=== PATIENT | female | born 1995 | race Caucasian/White ===

== ENCOUNTER 2017-12-23 07:51 | Emergency (ER) | payer OTHER ==
[~2017-12-23] VITALS: Ht 160 cm; Wt 92.1 kg
[2017-12-23] MEDS ORDERED: ZOFRAN4 MG PO (10:09)
== END 2017-12-23 10:21 | disposition home or self-care (01) ==
LOC: ED 07:51
DX: R11.2 Nausea with vomiting, unspecified (principal); Z88.2 Allergy status to sulfonamides; Z88.8 Allergy status to other drugs, medicaments and biological substances
CPT/HCPCS: 80053; 83605; 83690; 84703; 85025; 96361; 96374; 96375; 99283; J2060; J2405; J7030

== ENCOUNTER 2017-12-23 23:00 | Emergency (ER) | payer OTHER ==
[~2017-12-23] VITALS: Ht 160 cm; Wt 92.1 kg
[~2017-12-23 23:00] MED LIST: ZOFRAN4 MG PO
== END 2017-12-24 01:34 | disposition home or self-care (01) ==
LOC: ED 23:00
DX: K52.9 Noninfective gastroenteritis and colitis, unspecified (principal); Z88.2 Allergy status to sulfonamides; Z88.8 Allergy status to other drugs, medicaments and biological substances
CPT/HCPCS: 74177; 81001; 96361; 96374; 99284; J2550; J7030; Q9967

== ENCOUNTER 2018-10-28 22:07 | Emergency (ER) | payer OTHER ==
[~2018-10-28] VITALS: Ht 160 cm; Wt 92.1 kg
[2018-10-28] MEDS ORDERED: PROZAC20 MG PO (22:21)
[2018-10-28] MEDS ORDERED: HYDROXYZINE HCL25 MG PO (22:22)
[2018-10-28] MEDS ORDERED: DICYCLOMINE HCL20 MG PO (23:35)
== END 2018-10-28 23:57 | disposition home or self-care (01) ==
LOC: ED 22:07
DX: R10.30 Lower abdominal pain, unspecified (principal); F41.9 Anxiety disorder, unspecified; F32.9 Major depressive disorder, single episode, unspecified; Z88.2 Allergy status to sulfonamides; Z88.1 Allergy status to other antibiotic agents; Z88.8 Allergy status to other drugs, medicaments and biological substances
CPT/HCPCS: 80053; 81001; 83690; 84703; 85025; 99284

== ENCOUNTER 2019-03-18 21:19 | Emergency (ER) | payer OTHER ==
[~2019-03-18] VITALS: Ht 152.4 cm; Wt 92.1 kg
[~2019-03-18 21:19] MED LIST changes: +CIPRO500 MG PO; +DICYCLOMINE HCL20 MG PO; +HYDROXYZINE HCL25 MG PO; +PROZAC20 MG PO
[2019-03-18] MEDS ORDERED: LEXAPRO20 MG PO (21:37)
== END 2019-03-19 00:24 | disposition home or self-care (01) ==
LOC: ED 21:19
DX: Z00.8 Encounter for other general examination (principal); F41.9 Anxiety disorder, unspecified; F32.9 Major depressive disorder, single episode, unspecified; Z88.1 Allergy status to other antibiotic agents; Z88.2 Allergy status to sulfonamides; Z88.3 Allergy status to other anti-infective agents; Z79.899 Other long term (current) drug therapy
CPT/HCPCS: 80053; 80176; 81001; 84443; 84703; 85025; 99283; G0480

== ENCOUNTER 2020-01-17 20:28 | Emergency (ER) | payer OTHER ==
[~2020-01-17] VITALS: Ht 160 cm; Wt 99.8 kg
[~2020-01-17 20:28] MED LIST changes: +LEXAPRO20 MG PO
[2020-01-17] MEDS ORDERED: BUSPIRONE HCL7.5 MG PO (20:44)
[2020-01-17] MEDS ORDERED: HYDROXYZINE HCL25 MG PO (20:44)
[2020-01-17] MEDS ORDERED: BRINTELLIX10 MG PO (20:45)
[2020-01-17] MEDS ORDERED: ZOFRAN4 MG PO (21:35)
== END 2020-01-17 22:37 | disposition home or self-care (01) ==
LOC: ED 20:28
DX: K52.9 Noninfective gastroenteritis and colitis, unspecified (principal); F41.9 Anxiety disorder, unspecified; F32.9 Major depressive disorder, single episode, unspecified; F17.200 Nicotine dependence, unspecified, uncomplicated; Z88.2 Allergy status to sulfonamides; Z88.8 Allergy status to other drugs, medicaments and biological substances; Z79.899 Other long term (current) drug therapy
CPT/HCPCS: 80053; 81001; 83690; 84703; 85025; 96374; 99284-25; J2405; J7030

== ENCOUNTER 2020-05-28 12:34 | Emergency (ER) | payer OTHER ==
[~2020-05-28] VITALS: Ht 167.6 cm; Wt 89.8 kg
[~2020-05-28 12:34] MED LIST changes: +BRINTELLIX10 MG PO; +BUSPIRONE HCL7.5 MG PO
[2020-05-28] MEDS ORDERED: AMITRIPTYLINE H25 MG PO (12:45)
[2020-05-28] MEDS ORDERED: DOXYCYCLINE MO100 M1 PO (12:45)
[2020-05-28] MEDS ORDERED: MICROGESTIN1 EACH PO (12:46)
== END 2020-05-28 16:10 | disposition home or self-care (01) ==
LOC: ED 12:34
DX: K64.8 Other hemorrhoids (principal); N73.9 Female pelvic inflammatory disease, unspecified; F41.9 Anxiety disorder, unspecified; F32.9 Major depressive disorder, single episode, unspecified; Z87.891 Personal history of nicotine dependence; Z88.8 Allergy status to other drugs, medicaments and biological substances; Z88.2 Allergy status to sulfonamides; Z88.1 Allergy status to other antibiotic agents; Z79.899 Other long term (current) drug therapy
CPT/HCPCS: 74177; 80053; 81001; 84703; 85025; 99284-25; Q9967

== ENCOUNTER 2021-08-23 00:09 | Emergency (ER) | payer OTHER ==
[~2021-08-23] VITALS: Ht 167.6 cm; Wt 89.8 kg
[~2021-08-23 00:09] MED LIST changes: +AMITRIPTYLINE H25 MG PO; +DOXYCYCLINE MO100 M1 PO; +MICROGESTIN1 EACH PO
--- OUTSIDE RECORDS SUMMARY | 2021-08-23 00:18 | XMS ---
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 Rocío has no Care Guidelines for this patient. Mary VISIT COUNT (12 MO.) 1 [facility] TOTAL 2 NOTE: Visits indicate total known visits. ED/UCC VISIT TRACKING (12 MO.) 08/23/2021 00:10 [facility] [place] TYPE: Emergency COMPLAINT: - ABD PAIN, VAGINAL BLEEDING 03/17/2021 04:47 [facility] ID TYPE: Emergency DIAGNOSES: - Shortness of Breath; Dizzy - Shortness of Breath - COVID-19 - Pneumonia due to coronavirus disease 2019 - Emesis INPATIENT VISIT TRACKING (12 MO.) No inpatient visits to display in this time frame [email or web address]
[2021-08-23] MEDS ORDERED: DEXTROAMP-AMPHE15 MG PO (00:28)
[2021-08-23] MEDS ORDERED: HYDROCODON-ACE1 EA10 PO (01:35)
== END 2021-08-23 01:45 | disposition home or self-care (01) ==
LOC: ED 00:09
DX: N89.8 Other specified noninflammatory disorders of vagina (principal); Z87.891 Personal history of nicotine dependence; Z88.2 Allergy status to sulfonamides; Z88.8 Allergy status to other drugs, medicaments and biological substances; Z79.899 Other long term (current) drug therapy
CPT/HCPCS: 36415; 81001; 84703; 85025; 99284

== ENCOUNTER 2022-03-23 01:40 | Emergency (ER) | payer OTHER ==
[~2022-03-23] VITALS: Ht 167.6 cm; Wt 89.8 kg
[~2022-03-23 01:40] MED LIST changes: +DEXTROAMP-AMPHE15 MG PO; +HYDROCODON-ACE1 EA10 PO
--- OUTSIDE RECORDS SUMMARY | 2022-03-23 01:42 | XMS ---
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 Care History Medical/Surgical 08/26/2021 [facility] - Patient is currently established with [facility]. If patient is seen in the ED during business hours. Please contact CHWs at [facility]. Care Recommendation: If this patient has had 5 or more Emergency Department visits in the last 12 months.\T\nbsp; Patient will require education on the scope and purpose of the ED as an acute care provider not a Primary Care Provider and should not be utilized for chronic conditions.\T\nbsp; These are guidelines and the provider should exercise clinical judgment when providing care. E.D. VISIT COUNT (12 MO.) 2 [facility] TOTAL 2 NOTE: Visits indicate total known visits. ED/UCC VISIT TRACKING (12 MO.) 03/23/2022 01:[address] [facility] [place] TYPE: Emergency COMPLAINT: - ALTERED LOC 08/23/2021 00:[address] 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
== END 2022-03-23 04:22 | disposition home or self-care (01) ==
LOC: ED 01:40
DX: F10.129 Alcohol abuse with intoxication, unspecified (principal); Z87.891 Personal history of nicotine dependence; Z88.2 Allergy status to sulfonamides; Z88.8 Allergy status to other drugs, medicaments and biological substances; Z88.1 Allergy status to other antibiotic agents; Z79.899 Other long term (current) drug therapy
CPT/HCPCS: 36415; 80053; 84703; 85025; 96361; 96374; 96375; 99284-25; A9270; G0480; J1790; J2405; J3480; J7030

== ENCOUNTER 2022-11-13 06:50 | Day surgery (SDC) | payer OTHER ==
[2022-11-10 10:30] VITALS: BP 109/79
[~2022-11-13] VITALS: Ht 167.6 cm; Wt 75.5 kg
--- NOTE | ~2022-11-13 | OR ---
[facility] [address] [place], [place] [address] Draft DATE OF OPERATION: 11/13/2022 SURGEON: Mary Jo Toussaint DO PROCEDURE: Hysteroscopy, D and C. ASSOCIATE DIRECTOR OF DEVELOPMENT: None. PREOPERATIVE DIAGNOSIS: Abnormal uterine bleeding, endometrial polyp. POSTOPERATIVE DIAGNOSIS: Abnormal uterine bleeding, endometrial polyp. ANESTHESIA: Monitored anesthesia care. BLOOD LOSS: 10 mL. FINDINGS: Thickened endometrium. No obvious discrete polyp. INDICATIONS: The patient is a 27-year-old female who presented for office evaluation of abnormal irregular menstrual bleeding. Office endometrial biopsy was significant for endometrial polyp. Risks, benefits, alternatives to definitive management in the form of hysteroscopy, D and C, and polypectomy were discussed. The patient strongly preferred to proceed in the OR. Consents were signed. PROCEDURE IN DETAIL: The patient was taken back to the operating room where she was placed under monitored anesthesia care and positioned in dorsal lithotomy. She was prepped and draped in normal sterile fashion. Weighted speculum was placed in the vagina. Anterior lip of the cervix was grasped with an Allis clamp. Cervix was easily sequentially dilated with Hegar dilators to accommodate 6 mm hysteroscope. Hysteroscope was brought into the uterine cavity without any difficulty and bilateral tubal ostia were visualized. MyoSure Lite device was introduced. Superficial curettage of the uterine cavity was PATIENT NAME: SHARONDA LOMELI OPERATIVE REPORT DATE OF : [birth year] REPORT #: [id number] PHYSICIAN: MARY JO TOUSSAINT DO PCP: ORQUIDEA GARZA NP REPORT IS CONFIDENTIAL AND NOT TO BE RELEASED WITHOUT AUTHORIZATION [facility] [address] [place] [address] Draft performed under direct visualization using sterile saline as a distending medium and the Aquilex fluid management system. Fluid deficit at the end of the case noted to be 320 mL. All instruments were removed. Hemostasis was confirmed. Sponge and instrument counts were correct. The patient was taken to recovery room in stable and satisfactory condition. DO KAYE Cook/KAMRYNL /[id number] Copies: ~ PATIENT NAME: SHARONDA LOMELI OPERATIVE REPORT DATE OF : [birth year] REPORT #: [id number] PHYSICIAN: MARY JO TOUSSAINT DO PCP: ORQUIDEA GARZA NP REPORT IS CONFIDENTIAL AND NOT TO BE RELEASED WITHOUT AUTHORIZATION
[~2022-11-13 06:50] MED LIST changes: +ADDERALL 10 MG10 MG PO; +IBUPROFEN800 MG PO; +MIDODRINE HCL5 MG PO; +ONDANSETRON HCL4 MG PO
[2022-11-13 07:04] VITALS: BP 116/68
--- NOTE | 2022-11-13 10:24 | NUR ---
11/13/22 Kelly Huggins 1013 PT TO PACU SLEEPING O2 VIA MASK AT 6L. FOGGING NOTED IN MASK.
[2022-11-13 11:55] VITALS: BP 116/68
--- NOTE | 2022-11-13 13:58 | NUR ---
LE 1150 PATIENT BACK TO ROOM 4. PATIENT IS ALERT AND ORIENTED. BREATHING EQUAL AND UNLABORED. OXYGEN SATURATIONS ABOVE 90% ON ROOM AIR. PATIENT STATES PAIN IS A 5/10 AND TOLERABLE AT THIS TIME. DR. GARCÍA AWARE. PATIENT DENIES BEING NAUSEATED. PATIENT HAS SMALL AMOUNT OF RED DRAINAGE ON REMBERTO PAD. IVF INFUSING. CALL LIGHT WITHIN REACH NO FUTHER NEEDS. LE 1240 PATIENT UP TO USE RESTROOM. PATIENT TOLERATED AMBULATION WELL. PATIENT WOULD LIKE TO GO HOME. LE 1250 PATIENT HAS MET DISCHARGE INSTRUCTIONS. PATIENT DISCHARGE INSTRUCTIONS GIVEN AND UNDERSTOOD. NO QUESTIONS AT THIS TIME. PATIENT DRESSED SELF AND TOLERATED IT WELL. PATIENT WHEELED OUT OF FACILITY WITH [facility]. NO FUTHER NEEDS.
--- NOTE | 2022-11-18 06:16 | PATH ---
[facility] [address] [place], [place] [address] Signed SPECIMEN(S): A ENDOMETRIAL CURETTINGS SPECIMEN SOURCE: A. ENDOMETRIAL CURETTINGS CLINICAL HISTORY: AUB; endometrial polyp; POTS. FINAL PATHOLOGIC DIAGNOSIS: Endometrial curettings: - Proliferative endometrium with focal polypoid features, negative for hyperplasia or atypia. JVR:uvaldo:C2NR MICROSCOPIC EXAMINATION: Histologic sections of all submitted blocks are examined by light microscopy. These findings, together with the gross examination, support the pathologic diagnosis. GROSS DESCRIPTION: The specimen, labeled and designated "Shwetha Lomeli," and designated on the requisition "[facility]," is received in formalin and consists of a portion of alarcon-pink to red-brown soft tissue (2.5 x 1.5 x 0.3 cm in aggregate). The specimen is submitted entirely in cassette (A1). AC (under the direct supervision of a pathologist) The Gross Description was prepared using a voice recognition system. The report was reviewed for accuracy; however, sound-alike word errors, addition and/or deletions may occur. If there is any question about this report, please contact Client Services. PERFORMING LABORATORY: The technical component was performed by [facility], [address] [place] [id number] (CLIA# [id number]). Professional interpretation was performed by [facility] - [facility], [address] [place] [id number] (CLIA#: [id number]). Diagnostician: Latrell Ortiz MD Pathologist Electronically Signed 11/17/2022 PATIENT NAME: SHARONDA LOMELI PATHOLOGY DATE OF : [birth year] REPORT #: [id number] PHYSICIAN: [facility] PCP: ORQUIDEA GARZA NP REPORT IS CONFIDENTIAL AND NOT TO BE RELEASED WITHOUT AUTHORIZATION [address] [address] Signed Copies: ~ PATIENT NAME: SHARONDA LOMELI PATHOLOGY DATE OF : [birth year] REPORT #: [id number] PHYSICIAN: [facility] PCP: ORQUIDEA GARZA NP REPORT IS CONFIDENTIAL AND NOT TO BE RELEASED WITHOUT AUTHORIZATION
== END 2022-11-13 12:55 | disposition home or self-care (01) ==
LOC: DS 06:50 → OPS 06:50 → DS 09:30 → OPS 09:30
PROVIDERS: ATTEND Obstetrics & Gynecology
DX: N93.9 Abnormal uterine and vaginal bleeding, unspecified (principal); N84.0 Polyp of corpus uteri; G90.A Postural orthostatic tachycardia syndrome [POTS]; F17.210 Nicotine dependence, cigarettes, uncomplicated; Z88.1 Allergy status to other antibiotic agents; Z88.8 Allergy status to other drugs, medicaments and biological substances; Z79.899 Other long term (current) drug therapy
CPT/HCPCS: 00952; J0131; J1100; J1885; J2250; J2405; J2704; J3010; J7121

== ENCOUNTER 2023-01-16 12:05 | Emergency (ER) | payer OTHER ==
[~2023-01-16] VITALS: Ht 167.6 cm; Wt 77.2 kg
--- OUTSIDE RECORDS SUMMARY | ~2023-01-16 | XMS | Continuity of Care Document ---
Demographics + + + | Address | [address] | | | [place] [address] | + + + | Preferred Language | Unknown | + + + | Marital Status | Never | + + + | Amish Affiliation | Unknown | + + + | Race | White | + + + | Ethnic Group | Not or | + + + Author + + + | Author | [facility] | + + + | Organization | [facility] | + + + | Address | [address] [facility] | | | [place] [address] | + + + | Phone | | + + + Care Team Providers + + + + | Care Bicycle I Assembler Name | Role | Phone | + + + + Unavailable | Unavailable | + + + + Unavailable | Unavailable | + + + + Unavailable | Unavailable | + + + + Allergies and Intolerances + + + + + + | date | description | facility | reaction | severity | + + + + + + | (no date) | | [facility] | (no reaction) | (no severity) | | | Sulfamethoxazol [facility] | | | [facility] e [facility] Hospital | | | + + + + + + | (no date) | Trimethoprim | [facility] | (no reaction) | (no severity) | | | [facility] | | | | [facility] Hospital | | | + + + + + + | (no date) | Metronidazole | [facility] | (no reaction) | (no severity) | | | [facility] | | | | | | Hospital | | | + + + + + + | (no date) | Metronidazole | [facility] | (no reaction) | (no severity) | | | [facility] | | | | | | Hospital | | | + + + + + + | (no date) | IBUPROFEN | [facility] | (no reaction) | (no severity) | + + + + + + | (no date) | Mild | [facility] | (no reaction) | (no severity) | | | [facility] | | | | | | Hospital | | | + + + + + + | (no date) | Omeprazole | [facility] | (no reaction) | (no severity) | | | | [facility] | | | | | | Hospital | | | + + + + + + | (no date) | Trimethoprim | [facility] | (no reaction) | (no severity) | | | | [facility] | | | | | | Hospital | | | + + + + + + | (no date) | | [facility] | (no reaction) | (no severity) | | | SULFAMETHOXAZOL | | | | | | E-TRIMETHOPRIM | | | | + + + + + + | (no date) | OMEPRAZOLE | [facility] | (no reaction) | (no severity) | + + + + + + | (no date) | | [facility] | (no reaction) | (no severity) | | | Sulfamethoxazol | Cr | | | | | e | Hospital | | | + + + + + + | (no date) | Vomiting | [facility] | (no reaction) | (no severity) | | | | [facility] | | | | | | Hospital | | | + + + + + + | (no date) | Metronidazole | [facility] | (no reaction) | (no severity) | | | | [facility] | | | | | | Hospital | | | + + + + + + | (no date) | Omeprazole | [facility] | (no reaction) | (no severity) | | | | [facility] | | | | | | Hospital | | | + + + + + + | (no date) | Trimethoprim | [facility] | (no reaction) | (no severity) | | | | [facility] | | | | | | Hospital | | | + + + + + + | (no date) | | [facility] | (no reaction) | (no severity) | | | Sulfamethoxazol | Cr | | | | | e | Hospital | | | + + + + + + | (no date) | Omeprazole | [facility] | (no reaction) | (no severity) | | | | [facility] | | | | | | Hospital | | | + + + + + + Encounters No information. Functional Status No information. Immunizations + + + + | date | description | facility | + + + + | 2019-01-10 00:00 | Tdap | [facility] | + + + + Medications + + + + | date | description | facility | + + + + | 2022-11-13 00:00 | FLUOXETINE HCL | [facility] | + + + + | 2017-12-23 00:00 | ONDANSETRON HCL | [facility] | + + + + | 2020-01-17 00:00 | ONDANSETRON HCL | [facility] | + + + + | 2022-11-13 00:00 | NORETHINDRONE A-E | [facility] | | | ESTRADIOL | | + + + + | 2022-11-13 00:00 | DOXYCYCLINE MONOHYDRATE | [facility] | + + + + | 2022-11-13 00:00 | VORTIOXETINE HYDROBROMIDE | [facility] | + + + + | 2022-11-13 00:00 | IBUPROFEN | [facility] | + + + + | 2022-11-13 00:00 | ONDANSETRON HCL | [facility] | + + + + | 2019-01-10 00:00 | CIPROFLOXACIN HCL | [facility] | + + + + | 2022-11-13 00:00 | ESCITALOPRAM OXALATE | [facility] | + + + + | 2022-11-13 00:00 | AMITRIPTYLINE HCL | [facility] | + + + + | 2022-11-13 00:00 | AMPHET ASP/AMPHET/D-AMPHET | [facility] | | | | | + + + + | 2022-11-13 00:00 | BUSPIRONE HCL | [facility] | + + + + | 2018-10-28 00:00 | DICYCLOMINE HCL | [facility] | + + + + | 2022-11-13 00:00 | MIDODRINE HCL | [facility] | + + + + | 2022-11-13 00:00 | hydrOXYzine HCL | [facility] | + + + + Problems + + + + | date | description | facility | + + + + | 2017-12-23 00:00 | Vomiting | [facility] | + + + + | 2017-12-24 00:00 | Acute gastroenteritis | [facility] | + + + + | 2018-10-28 00:00 | Nonspecific abdominal pain | [facility] | | | | | + + + + | 2019-01-10 00:00 | Puncture wound | [facility] | + + + + | 2019-03-18 00:00 | Encounter for medical | [facility] | | | screening examination | | + + + + | 2020-05-28 00:00 | Internal hemorrhoids | [facility] | + + + + | 2020-05-28 00:00 | Female pelvic inflammatory | [facility] | | | disease | | + + + + | 2020-05-28 00:00 | Abdominal pain | [facility] | + + + + | 2021-03-17 06:28:01 | Pneumonia due to | [facility] | | | coronavirus disease 2019 | | + + + + | 2021-03-17 06:28:01 | COVID-19 | [facility] | + + + + | 2022-03-23 00:00 | Alcoholic intoxication | [facility] | + + + + Procedures + + + + | date | description | facility | + + + + | 2022-11-13 00:00 | Hysteroscopy | [facility] | + + + + | 2022-11-13 00:00 | Hysteroscopy | [facility] | + + + + Results/Labs +--------+--------+ +---------+--------+---------+ | test | date | facility | value | unit | notes | +--------+--------+ +---------+--------+---------+ + + | Result panel 1 | + + + + + +-------+ + + | | 2022-11-10 | [facility] | 5.1 | (missing) | (missing) | | (unavailable | 10:51:07 | [facility] | | | | | ) | | Hospital | | | | + + + +-------+ + + + + | Result panel 2 | + + + + + + + + + | | 2022-11-10 | [facility] | NEGATIVE | (missing) | (missing) | | (unavailable | 10:51:07 | Cr | | | | | ) | | Hospital | | | | + + + + + + + + + | Result panel 3 | + + + + + +--------+ + + | | 2022-11-10 | [facility] | 4.71 | (missing) | (missing) | | (unavailable | 10:51:07 | Cr | | | | | ) | | Hospital | | | | + + + +--------+ + + + + | Result panel 4 | + + + + + +--------+ + + | | 2022-11-10 | [facility] | 14.9 | (missing) | (missing) | | (unavailable | 10:51:07 | Cr | | | | | ) | | Hospital | | | | + + + +--------+ + + + + | Result panel 5 | + + + + + +--------+ + + | | 2022-11-10 | [facility] | 43.9 | (missing) | (missing) | | (unavailable | 10:51:07 | Cr | | | | | ) | | Hospital | | | | + + + +--------+ + + + + | Result panel 6 | + + + + + +--------+ + + | | 2022-11-10 | [facility] | 93.2 | (missing) | (missing) | | (unavailable | 10:51:07 | Cr | | | | | ) | | Hospital | | | | + + + +--------+ + + + + | Result panel 7 | + + + + + +--------+ + + | | 2022-11-10 | [facility] | 31.6 | (missing) | (missing) | | (unavailable | 10:51:07 | Cr | | | | | ) | | Hospital | | | | + + + +--------+ + + + + | Result panel 8 | + + + + + +--------+ + + | | 2022-11-10 | [facility] | 33.8 | (missing) | (missing) | | (unavailable | 10:51:07 | Cr | | | | | ) | | Hospital | | | | + + + +--------+ + + + + | Result panel 9 | + + + + + +--------+ + + | | 2022-11-10 | [facility] | 12.4 | (missing) | (missing) | | (unavailable | 10:51:07 | Cr | | | | | ) | | Hospital | | | | + + + +--------+ + + + + | Result panel 10 | + + + + + +-------+ + + | | 2022-11-10 | [facility] | 259 | (missing) | (missing) | | (unavailable | 10:51:07 | Cr | | | | | ) | | Hospital | | | | + + + +-------+ + + Social History No information. Vital Signs + + + +---------+ | date | measurement | value | units | + + + +---------+ | 2022-11-10 00:00 | BMI | 26.8 | kg/m2 | + + + +---------+ | 2022-11-10 00:00 | height_metric | 167.64 | cm | + + + +---------+ | 2022-11-10 00:00 | height_standard | 66 | in | + + + +---------+ | 2022-11-10 00:00 | weight_metric | 75.45 | kg | + + + +---------+ | 2022-11-10 00:00 | weight_standard | 166.34 | lb | + + + +---------+ | 2022-11-13 00:00 | BP_diastolic | 68 | mmHg | + + + +---------+ | 2022-11-13 00:00 | BP_systolic | 116 | mmHg | + + + +---------+ | 2022-11-13 00:00 | heart_rate | 78 | /min | + + + +---------+ | 2022-11-13 00:00 | o2_saturation | 100 | % | + + + +---------+ | 2022-11-13 00:00 | respiration_rate | 16 | /min | + + + +---------+ | 2022-11-13 00:00 | temperature_metric | 36.44 | C | | | | | | + + + +---------+ | 2022-11-13 00:00 | | 97.6 | F | | | temperature_standar | | | | | d | | | + + + +---------+"
--- OUTSIDE RECORDS SUMMARY | ~2023-01-16 | XMS | Continuity of Care Document ---
Demographics + + + | Address | [address] | | | [place] [address] | + + + | Preferred Language | Unknown | + + + | Marital Status | Never | + + + | Episcopalian Affiliation | Unknown | + + + | Race | White | + + + | Ethnic Group | Not or | + + + Author + + + | Author | [facility] | + + + | Organization | [facility] | + + + | Address | [address] | | | [place] [address] | + + + | Phone | | + + + Care Team Providers + + + + | Care Email Manager Name | Role | Phone | + [...] | 2019-01-10 00:00 | Tdap | [facility] | + + + + Medications + + + + | date | description | facility | + + + + | 2022-11-13 00:00 | FLUOXETINE HCL | [facility] | + + + + | 2017-12-23 00:00 | ONDANSETRON HCL | [facility] | + + + + | 2020-01-17 00:00 | ONDANSETRON HCL | [facility] | + + + + | 2022-11-13 00:00 | NORETHINDRONE A-E | [facility] | | | ESTRADIOL | | + + + + | 2022-11-13 00:00 | DOXYCYCLINE MONOHYDRATE | [facility] | + + + + | 2022-11-13 00:00 | VORTIOXETINE HYDROBROMIDE | [facility] | + + + + | 2022-11-13 00:00 | IBUPROFEN | [facility] | + + + + | 2022-11-13 00:00 | ONDANSETRON HCL | [facility] | + + + + | 2019-01-10 00:00 | CIPROFLOXACIN HCL | [facility] | + + + + | 2022-11-13 00:00 | ESCITALOPRAM OXALATE | [facility] | + + + + | 2022-11-13 00:00 | AMITRIPTYLINE HCL | [facility] | + + + + | 2022-11-13 00:00 | AMPHET ASP/AMPHET/D-AMPHET | [facility] | | | | | + + + + | 2022-11-13 00:00 | BUSPIRONE HCL | [facility] | + + + + | 2018-10-28 00:00 | DICYCLOMINE HCL | [facility] | + + + + | 2022-11-13 00:00 | MIDODRINE HCL | [facility] | + + + + | 2022-11-13 00:00 | hydrOXYzine HCL | [facility] | + + + + Problems + + + + | date | description | facility | + + + + | 2017-12-23 00:00 | Vomiting | [facility] | + + + + | 2017-12-24 00:00 | Acute gastroenteritis | [facility] | + + + + | 2018-10-28 00:00 | Nonspecific abdominal pain | [facility] | | | | | + + + + | 2019-01-10 00:00 | Puncture wound | [facility] | + + + + | 2019-03-18 00:00 | Encounter for medical | [facility] | | | screening examination | | + + + + | 2020-05-28 00:00 | Internal hemorrhoids | [facility] | + + + + | 2020-05-28 00:00 | Female pelvic inflammatory | [facility] | | | disease | | + + + + | 2020-05-28 00:00 | Abdominal pain | [facility] | + + + + | 2021-03-17 06:28:01 | Pneumonia due to | [facility] | | | coronavirus disease 2019 | | + + + + | 2021-03-17 06:28:01 | COVID-19 | [facility] | + + + + | 2022-03-23 00:00 | Alcoholic intoxication | [facility] | + + + + Procedures + + + + | date | description | facility | + + + + | 2022-11-13 00:00 | Hysteroscopy | [facility] | + + + + | 2022-11-13 00:00 | Hysteroscopy | [facility] | + + + + Results/Labs +--------+--------+ [...]
--- OUTSIDE RECORDS SUMMARY | 2023-01-16 12:08 | XMS ---
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 Care History Medical/Surgical 08/26/2021 [facility] - Patient is currently established with [facility]. If patient is seen in the ED during business hours. Please contact CHWs at [facility]. Care Recommendation: If this patient has had [...] care. E.D. VISIT COUNT (12 MO.) 2 [facility] TOTAL 2 NOTE: Visits indicate total known visits. 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
[2023-01-16] MEDS ORDERED: FLUVOXAMINE MAL50 MG PO (12:28)
[2023-01-16 13:11] VITALS: BP 108/72
--- NOTE | 2023-01-18 06:48 | EKG ---
[facility] [address] [facility] [place] [address] Signed Normal sinus rhythm Incomplete right bundle branch block Borderline ECG No previous ECGs available Confirmed by RAFAEL VANCE MD ([id number]) on 01/18/2023 6:48:43 AM Electronically Signed By: RAFAEL VANCE 01/18/23 0648 PATIENT NAME: SHARONDA LOMELI Electrocardiogram DATE OF : [birth year] PHYSICIAN: RAFAEL VANCE REPORT #: [id number] REPORT IS CONFIDENTIAL AND NOT TO BE RELEASED WITHOUT AUTHORIZATION
== END 2023-01-16 13:18 | disposition home or self-care (01) ==
LOC: ED 12:05
DX: R07.89 Other chest pain (principal); Z87.891 Personal history of nicotine dependence; Z88.8 Allergy status to other drugs, medicaments and biological substances; Z79.899 Other long term (current) drug therapy
CPT/HCPCS: 71046; 93005; 93010; A9270

== ENCOUNTER 2023-12-16 06:55 | Day surgery (SDC) | payer OTHER ==
[2023-12-14 09:25] VITALS: BP 106/70
[~2023-12-16] VITALS: Ht 167.6 cm; Wt 85.9 kg
[~2023-12-16 06:55] MED LIST changes: +FLUVOXAMINE MAL50 MG PO; +LACTATED RINGER'S 1,000 ML IV SCH
[2023-12-16] MEDS ORDERED: LIDOCAINE HCL 1% 5 ML SDV INJ ONE (07:00)
[2023-12-16] MEDS ORDERED: IBLOOD GLUCOSE TEST STRIP 1 EA TEST VI PRN ×2 (07:00→08:15)
[2023-12-16] MEDS ORDERED: MIDAZOLAM HCL 2 MG/2 ML VIAL IV ONE (07:15)
[2023-12-16 07:18] VITALS: BP 114/73
[2023-12-16] MEDS ORDERED: DEXAMETHASONE SOD PHOS 4 MG/ML VIAL ONE (07:38)
[2023-12-16] MEDS ORDERED: KETOROLAC TROMETHAMINE 30 MG/ML VIAL ONE (07:38)
[2023-12-16] MEDS ORDERED: LIDOCAINE HCL 1% 30 ML SDV ONE (07:38)
[2023-12-16] MEDS ORDERED: ROCURONIUM BROMIDE 50 MG/5 ML SYR ONE (07:38)
[2023-12-16] MEDS ORDERED: propofoL 200 MG/20 ML VIAL ONE (07:38)
[2023-12-16] MEDS ORDERED: dexmedeTOMIDine HCl 200 MCG/2 ML VIAL ONE (07:38)
[2023-12-16] MEDS ORDERED: ondansetron HCL 4 MG/2 ML VIAL ONE (07:38)
[2023-12-16] MEDS ORDERED: KETAMINE in NS 50 MG/5 ML SYR ONE (07:43)
[2023-12-16] MEDS ORDERED: NALOXONE HCL 0.4 MG SYR IV PRN ×2 (08:15→10:30)
[2023-12-16] MEDS ORDERED: fentaNYL citrate 50 MCG/ML SDV IV PRN (08:15)
[2023-12-16] MEDS ORDERED: ondansetron HCL 4 MG/2 ML VIAL IV PRN ×2 (08:15→10:30)
[2023-12-16] MEDS ORDERED: MIDAZOLAM HCL 2 MG/2 ML VIAL IV PRN (08:15)
[2023-12-16] MEDS ORDERED: Methylene Blue 100 MG/10 ML SDV ONE (08:17)
[2023-12-16] MEDS ORDERED: SODIUM CHLORIDE 0.9% 500 ML IV ONE (08:20)
[2023-12-16] MEDS ORDERED: LACTATED RINGER'S 1,000 ML IV ONE (09:15)
[2023-12-16] MEDS ORDERED: SUGAMMADEX SODIUM 200 MG/2 ML ML ONE (09:35)
--- NOTE | 2023-12-16 10:11 | NUR ---
12/16/23 1011 Dalia Hernandez PATIENT ARRIVES IN PACU UNRESPONSIVE TO MY VOICE AND LIGHT TOUCH. ORAL AIRWAY IN PLACE. 1009: PATIENT BEGINS TREMBLING. SHE BEGINS TAKING DEEP BREATHS. ORAL AIRWAY IS REMOVED BY [facility].
[2023-12-16] MEDS ORDERED: METOCLOPRAMIDE HCL 10 MG/2 ML SDV IV PRN (10:30)
[2023-12-16] MEDS ORDERED: MORPHINE SULFATE 10 MG/ML VIAL IV PRN (10:30)
[2023-12-16] MEDS ORDERED: FAMOTIDINE 20 MG TAB PO PRN (10:30)
[2023-12-16] MEDS ORDERED: OXYCODONE/APAP 5/325 TAB PO PRN (10:30)
[2023-12-16 11:02] VITALS: BP 120/72
--- NOTE | 2023-12-16 11:05 | NUR ---
ICED WATER AND PUDDING GIVEN. CALL LIGHT WITHIN REACH.
[2023-12-16 12:15] VITALS: BP 109/62
--- NOTE | 2023-12-16 12:53 | NUR ---
1215: PATIENT AWAKENED FOR VS CHECK. IV SITE WNL. RATES PAIN 6/10. PATIENT STATES SHE NEEDS TO VOID. 1220: PATIENT GIVEN 1 TAB OF PERCOCET FOR PAIN ALONG WITH SOME BITES OF APPLESAUCE. PATIENT ASSISTED OOB AND TO BATHROOM. 1235: PATIENT BACK IN BED. TOLERATED MORE APPLESAUCE AND CHOCOLATE PUDDING. PATIENT REQUESTED LIGHTS TURNED OFF. PATIENT RESTING. CALL LIGHT WITHIN REACH.
[2023-12-16] MEDS ORDERED: SIMETHICONE 125 MG TABLET CHEWABLE PO SCH (13:00)
[2023-12-16] MEDS ORDERED: HYDROCODON-ACE1 EA10 PO (13:18)
[2023-12-16 13:20] VITALS: BP 106/62
--- NOTE | 2023-12-16 14:33 | NUR ---
1325: PATIENT AWAKENED FOR VS CHECK. RATES PAIN /10. DISCHARGE INSTRUCTIONS GIVEN TO PATIENT. PATIENT ASKING TO TALK TO DR. MERRILL. 1345: DR. MERRILL IN ROOM TO SPEAK WITH PATIENT. 1350: PATIENT GETTING DRESSED. 1400: PATIENT PUT HOME CARE MANAGER LIGHT. C/O NAUSEA. COOL AIR BLOWING ON PATIENT. PATIENT LAYING DOWN IN BED.
--- NOTE | 2023-12-16 14:35 | NUR ---
1420: PATIENT CONTINUES TO HAVE NAUSEA. MEDICATED WITH IV ZOFRAN. RIDE HERE. PATIENT SAYS OK TO DISCHARGE HOME. 1425: IV DC'D WNL. TIP INTACT. DRESSING APPLIED. PATIENT DISCHARGED TO HOME WITH FRIEND DARBY VIA WHEELCHAIR.
[2023-12-16] MEDS ORDERED: MACROBID 100 M100 MG PO (21:51)
[2023-12-16] MEDS ORDERED: PERCOCET 5-3251 EACH PO (21:54)
--- NOTE | 2023-12-18 16:31 | PATH ---
[facility] [address] [place], [place] [address] Signed SPECIMEN(S): A ENDOMETRIAL CURETTINGS SPECIMEN SOURCE: A. ENDOMETRIAL CURETTINGS CLINICAL HISTORY: AUB; dysmenorrhea; dyspareunia; history of PID FINAL PATHOLOGIC DIAGNOSIS: Endometrium, curettage: - Proliferative phase endometrium; no hyperplasia or neoplasia identified BRP MICROSCOPIC EXAMINATION: Histologic sections of all submitted blocks are examined by light microscopy. These findings, together with the gross examination, support the pathologic diagnosis. GROSS DESCRIPTION: The specimen, labeled and designated "Lomeli, endometrial curettings," is received in formalin and consists of multiple fragments of soft alarcon-red tissue and blood measuring 3.5 x 2.5 x 0.3 cm in aggregate. Entirely submitted in (A1-A2). JS (under the direct supervision of a pathologist) The Gross Description was prepared using a voice recognition system. The report was reviewed for accuracy; however, sound-alike word errors, addition and/or deletions may occur. If there is any question about this report, please contact Client Services. ADDITIONAL NOTES: Immunohistochemical and/or in situ hybridization studies if performed in this case included appropriate positive controls that reacted as expected. This test was developed and its performance characteristics determined by [facility]. It has not been cleared or approved by the U.S. Food and Drug Administration. The FDA has determined that such clearance or approval is not necessary. This test is used for clinical purposes. It should not be regarded as investigational or for research. [facility] is certified under the Clinical Laboratory Improvement Amendments of 1988 (CLIA) as qualified to perform high complexity clinical laboratory testing. PATIENT NAME: SHARONDA LOMELI PATHOLOGY DATE OF : [birth year] REPORT #: [id number] PHYSICIAN: SREEDHAR PATHOLOGY PCP: ORQUIDEA GARZA NP REPORT IS CONFIDENTIAL AND NOT TO BE RELEASED WITHOUT AUTHORIZATION [facility] [address] [place] [address] Signed PERFORMING LABORATORY: Technical component was performed by [facility], [address] [place] [address] (CLIA# [id number]). Professional interpretation was performed by [facility] - [address] [id number] Diagnostician: Delroy Gann MD Pathologist Electronically Signed 12/18/2023 Copies: ~ PATIENT NAME: SHARONDA LOMELI PATHOLOGY DATE OF : [birth year] REPORT #: [id number] PHYSICIAN: SREEDHAR RAE PCP: ORQUIDEA GARZA NP REPORT IS CONFIDENTIAL AND NOT TO BE RELEASED WITHOUT AUTHORIZATION
--- NOTE | 2023-12-21 21:59 | OR ---
[facility] [address] [place], [place] [address] Signed DATE OF OPERATION: 12/16/2023 SURGEON: Kelsey Agarwal DO PREOPERATIVE DIAGNOSES: 1. Dysmenorrhea. 2. History of pelvic inflammatory disease. 3. Abnormal uterine bleeding. POSTOPERATIVE DIAGNOSES: 1. Dysmenorrhea. 2. Proximal bilateral fallopian tube occlusion. 3. Abnormal uterine bleeding. PROCEDURES PERFORMED: 1. Diagnostic laparoscopy. 2. Chromopertubation that demonstrated blocked tubes proximally bilaterally. 3. Hysteroscopy, D and C. CONTRACT NEGOTIATION MANAGER: Annie Hodges M.D. ANESTHESIA: General. ESTIMATED BLOOD LOSS: 10 mL. SPECIMENS: Endometrial curettings. FINDINGS: Normal upper quadrant bilaterally with no evidence of violin string over the liver capsule. In the right and left lower quadrants bilaterally, the patient has moderate amount of scarring of the colon to the abdominal sidewall. In the pelvis, normal uterus and ovaries bilaterally. The tubes are somewhat clubbed especially proximally near the cornu, but no obvious hydrosalpinx. No evidence of endometriosis or other pelvic pathology. Chromopertubation was performed and no fluid was noted within the fallopian tubes; however, fluid was seen in the parametrium, this confirms suspected proximal tubal occlusion based on the appearance of the fallopian tube. On hysteroscopy, normal Electronically Signed By: KELSEY AGARWAL DO (JD) 12/21/23 2159 PATIENT NAME: SHARONDA LOMELI OPERATIVE REPORT DATE OF : [birth year] REPORT #: [id number] PHYSICIAN: KELSEY AGARWAL (MAURO) PCP: ORQUIDEA GARZA NP REPORT IS CONFIDENTIAL AND NOT TO BE RELEASED WITHOUT AUTHORIZATION [facility] [address] [place], [place] [address] Signed uterine cavity with some thickened endometrium that was removed with MyoSure Reach device. Normal appearance of tubal ostia. INDICATIONS: Mrs. Lomeli is a very pleasant 28-year-old, G0 female, who presents for hysteroscopy, D and C, diagnostic laparoscopy and chromopertubation. Risks, benefits, and alternatives were discussed in detail with the patient. The patient understands and wished to proceed with the procedure. DESCRIPTION OF PROCEDURE: The patient was taken to the OR. Time-out was performed to confirm correct patient, correct procedure. General anesthesia was adequately established. The patient was prepped and draped in dorsal lithotomy position with her feet in Yellofin stirrups. ICPs were on running and a Sosa catheter was inserted. A weighted speculum was placed in vagina and the anterior lip of the cervix was grasped with an Allis clamp. Cervix was gently dilated using Hegar dilators to #7. A uterine manipulator was placed and attention was turned to the abdomen. The surgeon's gloves were changed. DESCRIPTION OF PROCEDURE: The base of the umbilicus was infiltrated with 0.25% Marcaine with epinephrine and a 5 mm stab incision was made with 11 blade. A 5 mm direct entry port was placed and pneumoperitoneum was established with direct visualization of the abdominal entry. Low opening pressures were noted. Survey of the abdomen and pelvis was then performed demonstrating normal liver with no extracapsular adhesions. Normal stomach; however, the patient does have some significant scarring of the ascending and descending colon to the abdominal sidewall. The pelvis demonstrates normal appearance of the uterus and bilateral ovaries. The fallopian tubes appear quite clubbed just at the cornu with the more distal portion of the fallopian tubes appearing normal bilaterally without hydrosalpinx. A 5 mm speech therapy assistant port was placed in the left lower quadrant under direct visualization. A careful examination of all peritoneal surfaces in the pelvis demonstrate no evidence of endometriosis. Chromopertubation was attempted to be performed and high intrauterine pressures were noted with infiltration of the dye. The dye extravasation was noted in the parametrium, but no dye was noted in the fallopian tube distal to the clubbed portion confirming suspected proximal occlusion of fallopian tubes bilaterally. Pneumoperitoneum was reduced. Trocars were removed. Trocar sites were repaired using 4-0 Vicryl. Attention was turned back to the pelvis. The intrauterine manipulator was removed. An operative hysteroscope was then placed in cervical os and advanced under direct visualization into the uterine cavity. Uterine cavity was noted to have some thickened endometrium with some endometrial debris likely from dilation and uterine manipulation. This was curettaged using MyoSure Reach device. Normal tubal ostia were noted bilaterally. Fluid deficit was noted to be 35 mL. The hysteroscope was removed. The Sosa catheter was removed and the patient was taken to Electronically Signed By: KELSEY BILLS) DO GARFIELD 12/21/23 8386 PATIENT NAME: SHARONDA LOMELI OPERATIVE REPORT DATE OF : [birth year] REPORT #: [id number] PHYSICIAN: KELSEY AGARWAL) PCP: ORQUIDEA GARZA NP REPORT IS CONFIDENTIAL AND NOT TO BE RELEASED WITHOUT AUTHORIZATION [address] [address] Signed PACU in good and stable condition. Sponge, needle, and instrument counts correct x2 at the end of the procedure. Dr. Hodges was present and participated in all portions of the procedure. Kelsey Agarwal DO JCourtW/MODL /[id number] Copies: ~ Electronically Signed By: KELSEY AGARWAL DO (JD) 12/21/23 2159 PATIENT NAME: SHARONDA LOMELI OPERATIVE REPORT DATE OF : [birth year] REPORT #: [id number] PHYSICIAN: KELSEY AGARWAL DO (JD) PCP: ORQUIDEA GARZA NP REPORT IS CONFIDENTIAL AND NOT TO BE RELEASED WITHOUT AUTHORIZATION
== END 2023-12-16 14:25 | disposition home or self-care (01) ==
LOC: DS 06:55 → OPS 06:55 → DS 08:40 → OPS 08:40 → DS 10:00 → OPS 14:25
PROVIDERS: ATTEND Obstetrics & Gynecology
PROC: 0UDB8ZZ Extraction of Endometrium, Via Natural or Artificial Opening Endoscopic (ICD-10-PCS; principal; 2023-12-16 08:40)
PROC: 3E1P38Z Irrigation of Female Reproductive using Irrigating Substance, Percutaneous Approach (ICD-10-PCS; 2023-12-16 08:40)
DX: N97.1 Female infertility of tubal origin (principal); N85.8 Other specified noninflammatory disorders of uterus; N93.9 Abnormal uterine and vaginal bleeding, unspecified; F32.9 Major depressive disorder, single episode, unspecified; G90.A Postural orthostatic tachycardia syndrome [POTS]; F90.9 Attention-deficit hyperactivity disorder, unspecified type; Z88.8 Allergy status to other drugs, medicaments and biological substances
CPT/HCPCS: 00840; J1100; J1885; J2250; J2270; J2405; J2704; J3010; J3490; J7040; J7121

== ENCOUNTER 2023-12-16 19:15 | Emergency (ER) | payer OTHER ==
[~2023-12-16] VITALS: Ht 167.6 cm; Wt 88.0 kg
[~2023-12-16 19:15] MED LIST changes: -LACTATED RINGER'S 1,000 ML IV SCH
[2023-12-16] MEDS ORDERED: ondansetron HCL 4 MG/2 ML VIAL IV ONE (20:15)
[2023-12-16] MEDS ORDERED: MORPHINE SULFATE 4 MG/ML VIAL IV ONE (20:15)
[2023-12-16] MEDS ORDERED: SODIUM CHLORIDE 0.9% 1,000 ML IV ONE (20:15)
[2023-12-16 20:34] LABS: BASOPHILS 0.2 % (0-2)
[2023-12-16 20:36] LABS: HEMATOCRIT 43.6 % (35.0-50.0); HEMOGLOBIN 14.6 g/dL (12.0-18.0); LYMPHOCYTES 12.9 % (24-44); MCH 31.4 (27-36); MCHC 33.5 g/dl (30-36); MCV 93.6 fl (81-99); MONOCYTES 7.3 % (0-12); NEUTROPHILS 79.6 % (39-80); PLATELET COUNT 267 K/uL (140-440); RBC 4.66 M/ul (4.3-5.7); RDW 11.9 (10.5-15.0)
[2023-12-16 20:47] LABS: BILIRUBIN, URINE NEGATIVE (negative); BLOOD/HGB, URINE LARGE (Negative); KETONE, URINE NEGATIVE (Negative); LEUK ESTERASE, URINE NEGATIVE (negative); NITRITE, URINE NEGATIVE (negative)
[2023-12-16 20:52] LABS: BACTERIA, URINE RARE /hpf (negative); CASTS, URINE NONE SEEN \\lpf; CRYSTALS, URINE AMORPHOUS PHOSPH 2+ (0-1+); EPITHELIAL CELLS, URINE SQUAMOUS 1+ /lpf (0-1+); RED BLOOD CELLS, URINE >50 /hpf (0-5); REFLEX CULTURE, URINE No (No)
[2023-12-16 20:57] LABS: ALBUMIN 3.7 g/dL (3.4-5.0); ALBUMIN/GLOBULIN RATIO 1.06 (1.1-2.4); ANION GAP 13.6 (7-21); BILIRUBIN, TOTAL 0.6 ng/dL (0.2-1.0); BUN/CREATININE RATIO 10.1 (6.0-28.6); CALCIUM 8.6 mg/dL (8.5-10.1); CREATININE, SERUM 0.99 mg/dL (0.55-1.02); POTASSIUM 3.6 mmol/L (3.5-5.1); PROTEIN, TOTAL 7.2 g/dL (6.4-8.2)
[2023-12-16 21:44] VITALS: BP 119/63
[2023-12-16] MEDS ORDERED: MACROBID 100 M100 MG PO (21:51)
[2023-12-16] MEDS ORDERED: PERCOCET 5-3251 EACH PO (21:54)
[2023-12-16] MEDS ORDERED: OXYCODONE/ACETAMINOPHEN 1 TAB HOME.PACK PO ONE (22:00)
[2023-12-16] MEDS ORDERED: NITROFURANTOIN MONOHYD MACROCR 100 MG HOME.PACK PO ONE (22:00)
== END 2023-12-16 22:18 | disposition home or self-care (01) ==
LOC: ED 19:15
PROVIDERS: Family Medicine
DX: N39.0 Urinary tract infection, site not specified (principal); G89.18 Other acute postprocedural pain; Z87.891 Personal history of nicotine dependence; Z88.8 Allergy status to other drugs, medicaments and biological substances
CPT/HCPCS: 36415; 74177; 80053; 81001; 84703; 85025; J2270; J2405; J7030; Q9967

== ENCOUNTER 2024-04-04 07:16 | Emergency (ER) | payer OTHER ==
[~2024-04-04] VITALS: Ht 167.6 cm; Wt 86.6 kg
[~2024-04-04 07:16] MED LIST changes: +MACROBID 100 M100 MG PO; +PERCOCET 5-3251 EACH PO
[2024-04-04] MEDS ORDERED: ONDANSETRON ODT8 MG PO (07:36)
[2024-04-04] MEDS ORDERED: ondansetron HCL 4 MG/2 ML VIAL IV ONE (07:45)
[2024-04-04] MEDS ORDERED: SODIUM CHLORIDE 0.9% 1,000 ML IV ONE (07:45)
[2024-04-04 07:55] LABS: BASOPHILS 0.1 % (0-2); EOSINOPHILS 0.1 % (0-6); HEMATOCRIT 45.5 % (35.0-50.0); HEMOGLOBIN 15.8 g/dL (12.0-18.0); LYMPHOCYTES 13.1 % (24-44); MCH 32.1 (27-36); MCHC 34.8 g/dl (30-36); MCV 92.3 fl (81-99); MONOCYTES 4.2 % (0-12); NEUTROPHILS 82.5 % (39-80); PLATELET COUNT 300 K/uL (140-440); RBC 4.93 M/ul (4.3-5.7); RDW 11.9 (10.5-15.0)
[2024-04-04 08:20] LABS: BILIRUBIN, URINE NEGATIVE (negative); BLOOD/HGB, URINE NEGATIVE (Negative); KETONE, URINE SMALL (Negative); LEUK ESTERASE, URINE NEGATIVE (negative); NITRITE, URINE NEGATIVE (negative)
[2024-04-04 08:23] LABS: ALBUMIN 4.4 g/dL (3.4-5.0); ALBUMIN/GLOBULIN RATIO 1.19 (1.1-2.4); ANION GAP 15.6 (7-21); BILIRUBIN, TOTAL 0.8 ng/dL (0.2-1.0); BUN/CREATININE RATIO 11.76 (6.0-28.6); CALCIUM 9.7 mg/dL (8.5-10.1); CREATININE, SERUM 0.85 mg/dL (0.55-1.02); POTASSIUM 3.6 mmol/L (3.5-5.1); PROTEIN, TOTAL 8.1 g/dL (6.4-8.2)
[2024-04-04 08:44] LABS: AMPHETAMINES, URINE NEGATIVE (NEGATIVE); BARBITURATES, URINE NEGATIVE (NEGATIVE); BENZODIAZEPINE, URINE POSITIVE (NEGATIVE); BUPRENORPHINE, URINE NEGATIVE (NEGATIVE); CANNABINOID, URINE POSITIVE (NEGATIVE); COCAINE, URINE NEGATIVE (NEGATIVE); ECSTASY, URINE NEGATIVE (NEGATIVE); FENTANYL, URINE NEGATIVE (NEGATIVE); METHADONE, URINE NEGATIVE (NEGATIVE); OPIATES, URINE NEGATIVE (NEGATIVE); OXYCODONE, URINE NEGATIVE (NEGATIVE); PHENCYCLIDINE, URINE NEGATIVE (NEGATIVE)
[2024-04-04 09:02] VITALS: BP 141/71
--- NOTE | 2024-04-06 17:35 | EKG ---
[facility] [address] [facility] [place] [address] Signed Sinus bradycardia Incomplete right bundle branch block Borderline ECG When compared with ECG of 16-JAN-2023 12:14, No significant change was found Confirmed by Isaac Gan MD ([id number]) on 04/06/2024 5:34:48 PM Electronically Signed By: ISAAC GAN DO 04/06/24 1735 PATIENT NAME: LOMELISHARONDALORA KAUR Electrocardiogram DATE OF : [birth year] PHYSICIAN: ISAAC GAN DO REPORT #: [id number] REPORT IS CONFIDENTIAL AND NOT TO BE RELEASED WITHOUT AUTHORIZATION
== END 2024-04-04 09:04 | disposition home or self-care (01) ==
LOC: ED 07:16
PROVIDERS: Emergency Medicine
DX: R11.2 Nausea with vomiting, unspecified (principal); E86.0 Dehydration; Z87.891 Personal history of nicotine dependence; Z88.2 Allergy status to sulfonamides; Z88.1 Allergy status to other antibiotic agents; Z79.899 Other long term (current) drug therapy
CPT/HCPCS: 36415; 80053; 80307; 81003; 83690; 83735; 84703; 85025; 93005; 93010; 96374; 99284; J2405; J7030

== ENCOUNTER 2024-04-30 20:12 | Emergency (ER) | payer OTHER ==
[~2024-04-30] VITALS: Ht 167.6 cm; Wt 82.5 kg
[~2024-04-30 20:12] MED LIST changes: +ONDANSETRON ODT8 MG PO
[2024-04-30] MEDS ORDERED: FOLIC ACID 1 MG/0.2 ML ML ONE (20:26)
[2024-04-30] MEDS ORDERED: DIAZEPAM5 MG PO (20:28)
[2024-04-30] MEDS ORDERED: PROCHLORPERAZINE EDISYLATE 10 MG/2 ML VIAL IV ONE (20:30)
[2024-04-30] MEDS ORDERED: MULTIVITAMINS 10 ML,FOLIC ACID 1 MG,THIAMINE HCL 100 MG in SODIUM CHLORIDE 0.9% 1,000 ML IV ONE (20:30)
[2024-04-30 20:33] LABS: BASOPHILS 0.3 % (0-2); EOSINOPHILS 0.4 % (0-6); HEMATOCRIT 43.4 % (35.0-50.0); HEMOGLOBIN 15.1 g/dL (12.0-18.0); LYMPHOCYTES 23.8 % (24-44); MCH 32.3 (27-36); MCHC 34.9 g/dl (30-36); MCV 92.5 fl (81-99); MONOCYTES 8.1 % (0-12); NEUTROPHILS 67.4 % (39-80); PLATELET COUNT 356 K/uL (140-440); RBC 4.69 M/ul (4.3-5.7); RDW 12.3 (10.5-15.0)
[2024-04-30] MEDS ORDERED: FAMOTIDINE 20 MG/ 2 ML VIAL IV ONE (20:45)
[2024-04-30 20:57] LABS: ABO O; RH POSITIVE
[2024-04-30 21:09] LABS: ALBUMIN 4.5 g/dL (3.4-5.0); ALBUMIN/GLOBULIN RATIO 1.32 (1.1-2.4); ANION GAP 18.3 (7-21); BILIRUBIN, TOTAL 1.3 ng/dL (0.2-1.0); BUN/CREATININE RATIO 11.9 (6.0-28.6); CALCIUM 9.2 mg/dL (8.5-10.1); CREATININE, SERUM 0.84 mg/dL (0.55-1.02); MAGNESIUM 1.8 mg/dL (1.8-2.4); PHOSPHORUS, INORGANIC 3.6 mg/dL (2.5-4.9); POTASSIUM 3.3 mmol/L (3.5-5.1); PROTEIN, TOTAL 7.9 g/dL (6.4-8.2)
[2024-04-30 21:26] LABS: BILIRUBIN, URINE NEGATIVE (negative); BLOOD/HGB, URINE NEGATIVE (Negative); KETONE, URINE >=80 (Negative); LEUK ESTERASE, URINE NEGATIVE (negative); NITRITE, URINE NEGATIVE (negative)
[2024-04-30] MEDS ORDERED: PROCHLORPERAZIN10 MG PO (21:44)
[2024-04-30] MEDS ORDERED: PRENATAL + DHA1 EAC1 PO (21:44)
[2024-04-30 21:55] VITALS: BP 107/67
== END 2024-04-30 21:55 | disposition home or self-care (01) ==
LOC: ED 20:12
PROVIDERS: Internal Medicine
DX: R11.2 Nausea with vomiting, unspecified (principal); Z32.01 Encounter for pregnancy test, result positive; Z88.2 Allergy status to sulfonamides; Z88.1 Allergy status to other antibiotic agents; Z88.3 Allergy status to other anti-infective agents; Z88.8 Allergy status to other drugs, medicaments and biological substances; Z79.899 Other long term (current) drug therapy
CPT/HCPCS: 36415; 76801; 76817; 80053; 81003; 83690; 83735; 84100; 84702; 85025; 86900; 86901; 96365; 96375; 99284-25; J0780; J3411; J7030

== ENCOUNTER 2024-08-24 02:09 | Emergency (ER) | payer OTHER ==
[~2024-08-24] VITALS: Ht 177.8 cm; Wt 79.4 kg
[~2024-08-24 02:09] MED LIST changes: +DIAZEPAM5 MG PO; +PRENATAL + DHA1 EAC1 PO; +PROCHLORPERAZIN10 MG PO
[2024-08-24 02:25] VITALS: BP 118/78
== END 2024-08-24 02:25 | disposition other institution, planned readmission (95) ==
LOC: ED 02:09
DX: O99.891 Other specified diseases and conditions complicating pregnancy (principal); R10.10 Upper abdominal pain, unspecified; O21.9 Vomiting of pregnancy, unspecified; Z3A.22 22 weeks gestation of pregnancy; Z87.891 Personal history of nicotine dependence; Z88.2 Allergy status to sulfonamides; Z88.1 Allergy status to other antibiotic agents; Z88.8 Allergy status to other drugs, medicaments and biological substances; Z88.3 Allergy status to other anti-infective agents; Z79.899 Other long term (current) drug therapy; Z79.1 Long term (current) use of non-steroidal anti-inflammatories (NSAID)
CPT/HCPCS: 99284

== ENCOUNTER 2024-12-14 21:05 | Inpatient (IN) | payer OTHER ==
[~2024-12-14] VITALS: Ht 167.6 cm; Wt 102.1 kg
[2024-12-14] MEDS ORDERED: CALCIUM CARBONATE 500 MG CHEW PO PRN (22:45)
[2024-12-14] MEDS ORDERED: LACTATED RINGER'S 1,000 ML IV PRN (22:45)
[2024-12-14] MEDS ORDERED: LACTATED RINGER'S 1,000 ML IV SCH (22:45)
[2024-12-14] MEDS ORDERED: OXYTOCIN/0.9 % SODIUM CHLORIDE 30 UNITS/500 ML BAG IV SCH (22:45)
[2024-12-14] MEDS ORDERED: MAGNESIUM HYDROXIDE/AL HYDROX 30 ML CUP PO PRN (22:45)
[2024-12-14 22:52] LABS: HEMATOCRIT 39.7 % (34.1-44.9); HEMOGLOBIN 13.7 g/dL (11.2-15.7); MCH 31.6 PG (25.6-32.2); MCHC 34.5 g/dL (32.2-35.5); MCV 91.5 fL (79.4-94.8); RBC 4.34 M/uL (3.93-5.22)
[2024-12-14 23:13] LABS: AMPHETAMINES, URINE NEGATIVE (NEGATIVE); BARBITURATES, URINE NEGATIVE (NEGATIVE); BENZODIAZEPINE, URINE NEGATIVE (NEGATIVE); BUPRENORPHINE, URINE NEGATIVE (NEGATIVE); CANNABINOID, URINE NEGATIVE (NEGATIVE); COCAINE, URINE NEGATIVE (NEGATIVE); ECSTASY, URINE NEGATIVE (NEGATIVE); FENTANYL, URINE NEGATIVE (NEGATIVE); METHADONE, URINE NEGATIVE (NEGATIVE); OPIATES, URINE NEGATIVE (NEGATIVE); OXYCODONE, URINE NEGATIVE (NEGATIVE); PHENCYCLIDINE, URINE NEGATIVE (NEGATIVE)
[2024-12-14] MEDS ORDERED: ROPIVACAINE 0.2% 200 ML BAG ONE (23:29)
[2024-12-14 23:30] LABS: ABO O; ANTIBODY SCREEN NEGATIVE; RH POSITIVE
[2024-12-14] MEDS ORDERED: dexmedeTOMIDine HCl 200 MCG/2 ML VIAL ONE (23:30)
[2024-12-15] MEDS ORDERED: ondansetron HCL 4 MG/2 ML VIAL ONE ×2 (00:14→05:45)
[2024-12-15] MEDS ORDERED: ePHEDrine sulfate 5 MG/ML SYRINGE IV PRN (00:15)
[2024-12-15] MEDS ORDERED: LACTATED RINGER'S 500 ML IV PRN (00:15)
[2024-12-15] MEDS ORDERED: ROPIVACAINE 0.2% 200 ML BAG EPIDURAL SCH (00:15)
[2024-12-15] MEDS ORDERED: LACTATED RINGER'S 2,000 ML IV ONE (00:15)
[2024-12-15] MEDS ORDERED: ePHEDrine KIT FOR FBC IV ONE (01:13)
[2024-12-15 01:20] VITALS: BP 107/60
[2024-12-15] MEDS ORDERED: BUPIVACAINE 0.75% IN DEXTROSE 2 ML AMP ONE (05:14)
[2024-12-15] MEDS ORDERED: LIDOCAINE HCL 2% 5 ML SDV ONE (05:14)
[2024-12-15] MEDS ORDERED: MORPHINE SULFATE 1 MG/ML VIAL ONE (05:14)
[2024-12-15] MEDS ORDERED: PHENYLEPHRINE HCL 10 MG/ML VIAL ONE (05:16)
[2024-12-15] MEDS ORDERED: ePHEDrine sulfate 50 MG/ML AMP ONE (05:16)
[2024-12-15] MEDS ORDERED: OXYTOCIN 10 UNITS/ML VIAL ONE (05:34)
[2024-12-15] MEDS ORDERED: DEXAMETHASONE SOD PHOS 4 MG/ML VIAL ONE (05:45)
[2024-12-15] MEDS ORDERED: IBUPROFEN 600 MG TAB PO PRN (09:00)
[2024-12-15] MEDS ORDERED: MAGNESIUM HYDROXIDE 30 ML UDC PO PRN (09:00)
[2024-12-15] MEDS ORDERED: OXYTOCIN/0.9 % SODIUM CHLORIDE 500 ML IV SCH (09:00)
[2024-12-15] MEDS ORDERED: MAGNESIUM HYDROXIDE/AL HYDROX 30 ML CUP PO PRN (09:00)
[2024-12-15] MEDS ORDERED: SENNOSIDES/DOCUSATE 1 EA TAB PO SCH (09:00)
[2024-12-15] MEDS ORDERED: BENZOCAINE 60 ML AEROSOL TOP PRN (09:00)
[2024-12-15] MEDS ORDERED: OXYCODONE/APAP 5/325 TAB PO PRN (09:00)
[2024-12-15] MEDS ORDERED: CALCIUM CARBONATE 500 MG CHEW PO PRN (09:00)
[2024-12-15] MEDS ORDERED: HYDROCORTISONE ACETATE 25 MG SUPP PR PRN (09:00)
[2024-12-15] MEDS ORDERED: ACETAMINOPHEN 325 MG TAB PO PRN (09:00)
[2024-12-15] MEDS ORDERED: HYDROCODONE/ACETA 5/325 TAB PO PRN (09:00)
[2024-12-15] MEDS ORDERED: WITCH HAZEL/GLYCERIN 1 EA PAD TOP PRN (09:00)
[2024-12-16 05:26] LABS: HEMOGLOBIN 11.6 g/dL (11.2-15.7); MCH 31.4 PG (25.6-32.2); MCHC 33.1 g/dL (32.2-35.5); MCV 94.6 fL (79.4-94.8); RBC 3.7 M/uL (3.93-5.22)
--- NOTE | 2024-12-16 17:39 | PR ---
[facility] [address] [facility] [place], [place] [address] Signed PP Progress Notes Datetime Report Generated by CPN: 12/16/2024 17:39 SUBJECTIVE: [id number] Pain: Within Normal Limits Nausea/Vomiting: Denies Flatus: Yes Bowel Movement: No Vital Signs: [id number] Vital Signs: Reviewed; Within Normal Limits EXAM: Ongoing Cardiovascular: Normal Respiratory: Normal Abdomen/Uterus: Normal Lochia: Normal Vulva/Perineum: Not Done Breasts: Not Done CVA Tenderness: Normal Extremities: Normal Incision: Not Applicable Progress: Normal Exam Comments: Fundus firm U-2 nontender IMPRESSION/PLAN/PROCEDURES: [id number] Impression: Normal Progression Plan: Continue Present Management Progress Notes: Pt seen and examined. Doing well. Ambulating, voiding, and tolerating full diet. Pain and lochia minimal. well. No fevers/chills or other concerns. Anticipate d/c home tomorrow. Working w/ RE latch. Signing Physician: Kelsey Agarwal DO Copies: ~ *Electronically Signed* 12/16/24 2218 KELSEY AGARWAL (MAURO) DO PATIENT NAME: SHARONDA LOMELI PROGRESS NOTE DATE OF : [birth year] PHYSICIAN: KELSEY AGARWAL (JD) DO RPT #: [id number] REPORT IS CONFIDENTIAL AND NOT TO BE RELEASED WITHOUT AUTHORIZATION
--- NOTE | 2024-12-17 08:46 | PR ---
[place] [facility] [address] [place], [place] [address] Signed PP Progress Notes Datetime Report Generated by CPN: 12/17/2024 08:46 SUBJECTIVE: [id number] Pain: Within Normal Limits Nausea/Vomiting: Denies Flatus: Yes Bowel Movement: No Vital Signs: [id number] Vital Signs: Reviewed; Within Normal Limits EXAM: Ongoing Cardiovascular: Normal Respiratory: Normal Abdomen/Uterus: Normal Lochia: Normal Vulva/Perineum: Not Done Breasts: Not Done CVA Tenderness: Normal Extremities: Normal Incision: Not Applicable Progress: Normal Exam Comments: Fundus firm U-2 nontender IMPRESSION/PLAN/PROCEDURES: [id number] Impression: Normal Progression Plan: Discharge Progress Notes: Pt seen and examined. Doing well. Ambulating, voiding, and tolerating full diet. C/O leaking urine / dribbling. Pain and lochia minimal. / pumping. No fevers/chills or other concerns. Desires d/c home today. Reviewed d/c instructions and pp medications. All questions answered. Planning micronor for pp contraception. F/U 2 wks Signing Physician: Kelsey Agarwal DO Copies: ~ *Electronically Signed* 12/17/24 0846 KELSEY AGARWAL (MAURO) DO PATIENT NAME: SHARONDA LOMELI PROGRESS NOTE DATE OF : [birth year] PHYSICIAN: KELSEY AGARWAL (JD) DO RPT #: [id number] REPORT IS CONFIDENTIAL AND NOT TO BE RELEASED WITHOUT AUTHORIZATION
== END 2024-12-17 14:25 | disposition home or self-care (01) | DRG 807 ==
LOC: FBCO 21:05 → FBC 22:25
PROVIDERS: ADMIT Obstetrics & Gynecology; ATTEND Obstetrics & Gynecology
PROC: 3E0R3BZ Introduction of Anesthetic Agent into Spinal Canal, Percutaneous Approach (ICD-10-PCS; principal; 2024-12-15)
PROC: 00HU33Z Insertion of Infusion Device into Spinal Canal, Percutaneous Approach (ICD-10-PCS; 2024-12-15)
PROC: 10E0XZZ Delivery of Products of Conception, External Approach (ICD-10-PCS; 2024-12-15)
PROC: 0UQMXZZ Repair Vulva, External Approach (ICD-10-PCS; 2024-12-15)
DX: O69.81X0 Labor and delivery complicated by cord around neck, without compression, not applicable or unspecified (principal); Z37.0 Single live birth; O71.82 Other specified trauma to perineum and vulva; O99.344 Other mental disorders complicating childbirth; F41.9 Anxiety disorder, unspecified; G90.A Postural orthostatic tachycardia syndrome [POTS]; F42.9 Obsessive-compulsive disorder, unspecified; F32.9 Major depressive disorder, single episode, unspecified; Z3A.38 38 weeks gestation of pregnancy; Z88.8 Allergy status to other drugs, medicaments and biological substances
CPT/HCPCS: 36415; 59025; 80307; 85027; 86850; 86900; 86901; A9270; G0463; J1100; J2003; J2274; J2371; J2405; J2590; J7121

== ENCOUNTER 2025-01-13 14:03 | Emergency (ER) | payer OTHER ==
[~2025-01-13] VITALS: Ht 182.9 cm; Wt 97.1 kg
[2025-01-13 14:56] LABS: BASOPHILS 0.2 % (0.1-1.2); EOSINOPHILS 2.3 % (0.7-5.8); LYMPHOCYTES 33.0 % (19.3-51.7); MCH 31.3 PG (25.6-32.2); MCHC 34.6 g/dL (32.2-35.5); MCV 90.5 fL (79.4-94.8); MONOCYTES 10.7 % (4.7-12.5); NEUTROPHILS 53.6 % (34.0-71.1); RBC 4.41 M/uL (3.93-5.22)
[2025-01-13] MEDS ORDERED: SODIUM CHLORIDE 0.9% 1,000 ML IV PRN (15:00)
[2025-01-13 15:06] LABS: ALT (SGPT) 48.0 U/L (14-59); AST (SGOT) 20.0 U/L (15-37); GLOMERULAR FILTRATION RATE,EST 90.0 mL/min (>60); PROTEIN, TOTAL 6.8 g/dL (6.4-8.2); UREA NITROGEN 12.0 mg/dL (7-18)
[2025-01-13 15:25] LABS: ABO O; ANTIBODY SCREEN NEGATIVE; RH POSITIVE
[2025-01-13 18:38] VITALS: BP 108/64
== END 2025-01-13 18:39 | disposition home or self-care (01) ==
LOC: ED 14:03
PROVIDERS: Emergency Medicine
DX: O72.2 Delayed and secondary postpartum hemorrhage (principal); Z88.2 Allergy status to sulfonamides; Z88.1 Allergy status to other antibiotic agents; Z88.3 Allergy status to other anti-infective agents; Z88.8 Allergy status to other drugs, medicaments and biological substances
CPT/HCPCS: 36415; 76830; 76856; 80053; 85025; 86850; 86900; 86901; J7030